=== PATIENT | female | born 1945 | race Caucasian/White ===

== ENCOUNTER 2017-08-28 08:50 | Emergency (ER) | payer MEDICARE ==
[~2017-08-28] VITALS: Ht 170.2 cm; Wt 56.2 kg
[2017-08-28 09:45] LABS: BASOPHILS # (AUTO) 0.1 (0.0-0.1); BASOPHILS % 0.8 % (0.0-1.0); EOSINOPHILS # (AUTO) 0.3 (0.0-0.4); EOSINOPHILS % 2.7 % (0.0-6.0); HEMATOCRIT 37.7 % (34.2-44.1); HEMOGLOBIN 13.1 g/dL (12.0-16.0); LYMPHOCYTES % 9.5 % (18.0-39.1); MEAN CORPUSCULAR HEMOGLOBIN 30.6 pg (28-32); MEAN CORPUSCULAR HGB CONC 34.7 g/dL (31-35); MEAN CORPUSCULAR VOLUME 88.1 fL (81-99); MONOCYTES # (AUTO) 0.4 (0.2-0.8); MONOCYTES % 4.2 % (4.4-11.3); NEUTROPHILS # (AUTO) 8.4 (2.1-6.9); NEUTROPHILS % 82.3 % (38.7-80.0); PLATELET COUNT 259 x10e3/uL (140-360); RED BLOOD COUNT 4.28 x10e6/uL (3.6-5.1); RED CELL DISTRIBUTION WIDTH 12.6 % (11.7-14.4)
[2017-08-28 09:46] LABS: BILIRUBIN,URINE NEGATIVE (NEGATIVE); CLARITY,URINE CLEAR (CLEAR); COLOR,URINE YELLOW (YELLOW); KETONES,URINE NEGATIVE (NEGATIVE); LEUKOCYTE ESTERASE ,URINE NEGATIVE (NEGATIVE); NITRITE,URINE NEGATIVE (NEGATIVE); URINE UROBILINOGEN 0.2 mg/dL (0.2 - 1)
[2017-08-28 09:52] LABS: PROTEIN,URINE DIPSTICK 2+ (NEGATIVE)
[2017-08-28 10:04] LABS: INR 1.01; PARTIAL THROMBOPLASTIN TIME 26.6 seconds (23.8-35.5); PROTHROMBIN TIME 13.8 seconds (11.9-14.5)
[2017-08-28 10:13] LABS: ALBUMIN 3.7 g/dL (3.5-5.0); ALBUMIN/GLOBULIN RATIO 0.9 (0.8-2.0); ANION GAP 15.8 mmol/L (8-16); CALCIUM 9.7 mg/dL (8.4-10.2); CREATININE, SERUM 1.2 mg/dL (0.57-1.11); POTASSIUM 3.8 mmol/L (3.5-5.1)
[2017-08-28 10:16] LABS: BACTERIA,URINE MODERATE /HPF; EPITHELIAL CELLS,URINE MODERATE /LPF
[2017-08-28 10:19] LABS: CREATINE KINASE MB 1.1 ng/mL (0.00-5.00); TROPONIN I 0.012 ng/mL (0-0.300)
--- NOTE | 2017-08-28 10:30 | Diagnostic Imaging Report ---
History:Syncope Comparison studies:None Technique: Axial images were obtained from the skull base to the vertex. Coronal and sagittal images reconstructed from the axial data. Intravenous contrast: None Findings: Scalp/skull: No abnormalities. Extra-axial spaces: No masses. No fluid collections. Brain sulci: Mildly prominent. Ventricles: Mild compensatory dilatation. No hydrocephalus. Parenchyma: Small hypodensities in the supratentorial white matter are small vessel ischemic changes. No masses, hemorrhage, acute or chronic cortical vascular insults. Sellar/suprasellar region: No abnormalities. Craniocervical junction: Patent foramen magnum. No Chiari one malformation. Incidental findings: Atherosclerotic calcifications in the carotid siphons and left vertebral . Right mastoidectomy changes. Impression: No acute abnormalities. Chronic findings: 1. Mild generalized volume loss. 2. Mild supratentorial white matter small vessel ischemic changes. Signed by: DR Houston Gunn M.D. on 08/28/2017 10:26 AM
--- NOTE | 2017-08-28 10:38 | Diagnostic Imaging Report ---
PROCEDURE:CHEST SINGLE (PORTABLE) TECHNIQUE:Portable AP chest INDICATION:Passed out COMPARISON:None. FINDINGS: Calcified granuloma. Paucity of interstitial markings in the upper lung zones with relative hyperinflation. Normal heart size and mediastinal contour. Calcified mediastinal lymph nodes. Grossly intact skeleton. CONCLUSION: Hyperinflation suggesting air trapping or emphysema. No acute abnormality. Dictated by: Zac Langley M.D. on 08/28/2017 at 10:47 Electronically approved by: aZc Langley M.D. on 08/28/2017 at 10:47
[2017-08-28 11:12] VITALS: BP 159/73
== END 2017-08-28 11:33 | disposition home or self-care (01) ==
LOC: ER 08:50
DX: R55 Syncope and collapse (principal); N39.0 Urinary tract infection, site not specified; I10 Essential (primary) hypertension; E11.9 Type 2 diabetes mellitus without complications
CPT/HCPCS: 36415; 70450; 71010; 80053; 81001; 82550; 82553; 84484; 85025; 85610; 85730; 93005; 99284

== ENCOUNTER → 2021-04-18 | Day surgery (SDC) | payer MEDICARE ==
[2021-04-15 13:32] LABS: BASOPHILS # (AUTO) 0.1 (0.0-0.1); BASOPHILS % 0.5 % (0.0-1.0); EOSINOPHILS # (AUTO) 0.2 (0.0-0.4); EOSINOPHILS % 1.8 % (0.0-6.0); HEMATOCRIT 39.3 % (34.2-44.1); HEMOGLOBIN 12.7 g/dL (12.0-16.0); LYMPHOCYTES # (AUTO) 1.2 (1.0-3.2); LYMPHOCYTES % 12.6 % (18.0-39.1); MEAN CORPUSCULAR HEMOGLOBIN 30.5 pg (28-32); MEAN CORPUSCULAR HGB CONC 32.3 g/dL (31-35); MEAN CORPUSCULAR VOLUME 94.2 fL (81-99); MONOCYTES # (AUTO) 0.5 (0.2-0.8); MONOCYTES % 4.8 % (4.4-11.3); NEUTROPHILS # (AUTO) 7.9 (2.1-6.9); NEUTROPHILS % 79.8 % (38.7-80.0); PLATELET COUNT 190 x10e3/uL (140-360); RED BLOOD COUNT 4.17 x10e6/uL (3.6-5.1); RED CELL DISTRIBUTION WIDTH 13.7 % (11.7-14.4)
[2021-04-15 13:51] LABS: ALBUMIN 3.6 g/dL (3.5-5.0); ALBUMIN/GLOBULIN RATIO 1.1 (0.8-2.0); ANION GAP 14.4 mmol/L (8-16); CREATININE, SERUM 1.29 mg/dL (0.57-1.11); POTASSIUM 4.4 mmol/L (3.5-5.1)
[~2021-04-18] VITALS: Ht 167.6 cm; Wt 55.3 kg
[2021-04-18] VITALS (10 sets, daily range): BP systolic 144–169; BP diastolic 47–77
[~2021-04-18] MED LIST: ARICEPT10 MG PO; ASPIRIN EC81 MG PO; ATORVASTATIN CA20 MG PO; CARVEDILOL12.5 MG PO; DICYCLOMINE HCL20 MG PO; FENTANYL CITRATE/PF 100MCG/2 ML INJ ONE; HEPARIN SOD (PORCINE) 1000 UNIT/ML 30ML ONE; HEPARIN SOD/SOD CHLORIDE 2,000 ML ONE; IOPAMIDOL 370 MG/ML 200 ML INFUS..BTL INJ ONE; LASIX20 MG PO; LEVOTHYROXINE50 MCG PO; LEXAPRO20 MG PO; LIDOCAINE HCL 2% LOCAL 20 ML VIAL ONE; LOSARTAN POTASS25 MG PO; MIDAZOLAM HCL 2 MG/2 ML VIAL ONE; MULTI-VITAMIN1 EACH PO; NAMENDA5 MG PO; NITROGLYCERIN/D5W 200 MCG/ML 250 ML ONE; PANTOPRAZOLE SO40 MG PO; RAMIPRIL5 MG PO; SODIUM CHLORIDE 0.9% 1000ML 1,000 ML ONE; SODIUM CHLORIDE1 GM PO; VERAPAMIL HCL 2.5 MG/ML 2 ML VIAL ONE
== END | disposition home or self-care (01) ==
LOC: CATH LAB 06:33
PROVIDERS: ATTEND Internal Medicine Cardiovascular Disease
DX: I25.10 Atherosclerotic heart disease of native coronary artery without angina pectoris (principal); I11.0 Hypertensive heart disease with heart failure; E11.9 Type 2 diabetes mellitus without complications; E78.00 Pure hypercholesterolemia, unspecified; I21.4 Non-ST elevation (NSTEMI) myocardial infarction; R07.2 Precordial pain; I50.32 Chronic diastolic (congestive) heart failure; I35.0 Nonrheumatic aortic (valve) stenosis; Z88.5 Allergy status to narcotic agent; Z88.0 Allergy status to penicillin; Z01.810 Encounter for preprocedural cardiovascular examination; Z01.812 Encounter for preprocedural laboratory examination; Z20.822 Contact with and (suspected) exposure to COVID-19
CPT/HCPCS: 36415; 76937; 80053; 85025; 93005; 93454; C1769; C1887; J1644; J2001; J2250; J3010; J7030; Q9967; U0002; 99152